=== PATIENT | male | born 1980 | race African-American/Black ===

== ENCOUNTER 2017-07-04 11:49 | Emergency (ER) | payer MEDICAID ==
[~2017-07-04] VITALS: Ht 177.8 cm; Wt 100.0 kg
[2017-07-04] MEDS ORDERED: KETOROLAC 30MG/ML VIAL IM ONE (16:45)
[2017-07-04] MEDS ORDERED: BACITRACIN ZINC OINT UDPKT TOP ONE (16:45)
[2017-07-04] MEDS ORDERED: LIDOCAINE HCL 1% 20ML VIAL (Pyxis) INJ MC ONE (16:45)
[2017-07-04 16:49] VITALS: BP 118/67
== END 2017-07-04 18:00 | disposition home or self-care (01) ==
LOC: ER 14:03
DX: L02.31 Cutaneous abscess of buttock (principal); F12.10 Cannabis abuse, uncomplicated
CPT/HCPCS: 10060; 96372; 99283; A4217; J1885; J3490; Z7610

== ENCOUNTER 2017-07-06 05:12 | Emergency (ER) | payer MEDICAID ==
[~2017-07-06] VITALS: Ht 180.3 cm; Wt 95.0 kg
[2017-07-06 05:30] VITALS: BP 125/80
[2017-07-06] MEDS ORDERED: BACITRACIN ZINC OINT UDPKT TOP ONE (06:30)
== END 2017-07-06 07:45 | disposition left against medical advice (07) ==
LOC: ER 07:36
DX: Z48.00 Encounter for change or removal of nonsurgical wound dressing (principal); L02.31 Cutaneous abscess of buttock
CPT/HCPCS: 99282